=== PATIENT | female | born 1990 | race American Indian/Alaskan Native ===

== ENCOUNTER 2021-10-14 16:42 | Emergency (ER) | payer OTHER ==
--- NOTE | 2021-10-14 16:56 | Emergency Department Report ---
ED ENT HPI - General Chief complaint: Dental/Oral Stated complaint: TOOTHACHE Time Seen by Provider: 10/14/21 16:52 Source: patient Mode of arrival: Ambulatory Limitations: No Limitations - History of Present Illness Initial comments: Patient is a 30-year-old female that comes to the emergency room today with dental pain. She has impacted wisdom teeth and needs oral surgery but she has not been able to get it because she cannot afford it. She also has a caries of one of her lower wisdom teeth. She has no abscess. No Ludewig's. No trismus vital signs are stable ABCs intact and she is controlling secretions. -: Gradual, month(s) Severity: moderate Quality: aching Consistency: constant Improves with: none Worsens with: none Context- Dental: history of dental caries Associated Symptoms: toothache. denies: fever, cough, gum swelling, pain with swallowing, sore throat, tinnitus, hearing loss, discharge from ear, rhinorrhea - Related Data Previous Rx's Medication Instructions Recorded Last Taken Type Amoxicillin [Trimox CAP] 500 mg PO BID #20 capsule 10/14/21 Unknown Rx Ibuprofen [Motrin] 800 mg PO Q8HR PRN #30 tablet 10/14/21 Unknown Rx Allergies Allergy/AdvReac Type Severity Reaction Status Date / Time No Known Allergies Allergy Verified 10/14/21 16:47 ED Dental HPI - General Chief complaint: Dental/Oral Stated complaint: TOOTHACHE Time Seen by Provider: 10/14/21 16:52 Source: patient Mode of arrival: Ambulatory Limitations: No Limitations - Related Data Previous Rx's Medication Instructions Recorded Last Taken Type Amoxicillin [Trimox CAP] 500 mg PO BID #20 capsule 10/14/21 Unknown Rx Ibuprofen [Motrin] 800 mg PO Q8HR PRN #30 tablet 10/14/21 Unknown Rx Allergies Allergy/AdvReac Type Severity Reaction Status Date / Time No Known Allergies Allergy Verified 10/14/21 16:47 ED Review of Systems ROS: Stated complaint: TOOTHACHE Other details as noted in HPI Comment: All other systems reviewed and negative ED Past Medical Hx - Past Medical History Previous Medical History?: No - Surgical History Past Surgical History?: No - Family History Family history: no significant - Social History Smoking Status: Never Smoker Substance Use Type: None - Medications Home Medications: Home Medications Medication Instructions Recorded Confirmed Last Taken Type Amoxicillin [Trimox CAP] 500 mg PO BID #20 capsule 10/14/21 Unknown Rx Ibuprofen [Motrin] 800 mg PO Q8HR PRN #30 tablet 10/14/21 Unknown Rx ED Physical Exam - General Limitations: No Limitations General appearance: alert, in no apparent distress - Head Head exam: Present: atraumatic, normocephalic - Eye Eye exam: Present: normal appearance - ENT ENT exam: Present: mucous membranes moist - Expanded ENT Exam Expanded Mouth exam: Present: normal external inspection. Absent: drooling, trismus, muffled voice, tongue normal, tongue elevation, laceration Teeth exam: Present: dental caries, other 1 - Other (caries) - Neck Neck exam: Present: normal inspection - Respiratory Respiratory exam: Present: normal lung sounds bilaterally. Absent: respiratory distress - Cardiovascular Cardiovascular Exam: Present: regular rate, normal rhythm. Absent: systolic murmur, diastolic murmur, rubs, gallop - GI/Abdominal GI/Abdominal exam: Present: soft, normal bowel sounds - Extremities Exam Extremities exam: Present: normal inspection - Back Exam Back exam: Present: normal inspection - Neurological Exam Neurological exam: Present: alert, oriented X3 - Psychiatric Psychiatric exam: Present: normal affect, normal mood - Skin Skin exam: Present: warm, dry, intact, normal color. Absent: rash ED Course Vital Signs 10/14/21 16:47 Temperature 98.6 F Pulse Rate 89 Respiratory 16 Rate Blood Pressure 127/89 [Left] O2 Sat by Pulse 99 Oximetry ED Medical Decision Making - Medical Decision Making Vital Signs 10/14/21 16:47 Temperature 98.6 F Pulse Rate 89 Respiratory 16 Rate Blood Pressure 127/89 [Left] O2 Sat by Pulse 99 Oximetry I have educated patient regarding her dental caries and wisdom teeth. I told her the overdoing today will temporarily relieve the pain from the cavity but she ultimately needs to see the dentist for definitive care. She verbalizes understanding. Patient discharged home with discharge plan of care including di et, medications and activity and follow-up. She verbalizes understanding. - Differential Diagnosis Dental pain Critical care attestation.: If time is entered above; I have spent that time in minutes in the direct care of this critically ill patient, excluding procedure time. ED Disposition Clinical Impression: Caries Disposition: 01 HOME / SELF CARE / HOMELESS Is pt being admited?: No Does the pt Need Aspirin: No Condition: Stable Instructions: Preventive Dental Care, Adult Additional Instructions: Medication as ordered today. Follow-up with dentist referrals below. Tylenol can be used in addition to what have given you today for pain Stay well-hydrated with water Take antibiotic until completely gone Prescriptions: Ibuprofen [Motrin] 800 mg PO Q8HR PRN #30 tablet PRN Reason: Pain, Moderate (4-6) Amoxicillin [Trimox CAP] 500 mg PO BID #20 capsule [facility]5 [facility] [Outside] - 3-5 Days Forms: Work/School Release Form(ED) Time of Disposition: 16:54
[2021-10-14 17:27] VITALS: BP 154/79
== END 2021-10-14 17:15 | disposition home or self-care (01) ==
LOC: ED 16:42
DX: K02.9 Dental caries, unspecified (principal); Z79.899 Other long term (current) drug therapy
CPT/HCPCS: 99282

== ENCOUNTER 2022-01-19 17:47 | Emergency (ER) | payer OTHER ==
[2022-01-19 19:51] VITALS: BP 131/96
[2022-01-19] MEDS ORDERED: ACETAMINOPHEN 500 MG TAB PO ONE (19:54)
--- NOTE | 2022-01-19 19:54 | Emergency Department Report ---
Chief Complaint: Fever Stated Complaint: FEVER,CHILLS,AB PAIN,WEAKNESS Time Seen by Provider: 01/19/22 19:51 - HPI History of Present Illness: States that she was treated for urinary tract infection with Bactrim 3 days ago, has been taking antibiotics as prescribed, but developed fever yesterday that has been persistent since then. T-max equals 102. She states that she also has some vaginal discharge now. - ROS Review of Systems: Patient complains of abdominal pain, dysuria, fever, and vaginal discharge. She denies chest pain or shortness of breath. - Exam Vital Signs: Vital Signs 01/19/22 19:45 Temperature 101.1 F H Pulse Rate 122 H Respiratory 18 Rate Blood Pressure 131/96 [Right] O2 Sat by Pulse 98 Oximetry Physical Exam: General: Nontoxic appearing no acute distress Cardiac: Regular rate, normal heart sounds Respiratory: Normal lung sounds bilaterally no use of peripheral vascular tech muscles GI/-normal sounds, tenderness to suprapubic area, no guarding Musculoskeletal-normal inspection full range of motion Neuro-alert oriented x4. Speech is clear MSE screening note: Focused history and physical exam performed. Due to findings the following was ordered: CBC, CMP, lipase, UA, urine . In the setting of a significantly high volume and record number of patients presenting to the emergency department and the fact that we have a limited space to see patients we have implemented the provider in triage protocol this allows an expedited initial exam of patients that might otherwise have left without being seen or who would wait longer than usual to be seen by provider. I interviewed the patient and performed a limited physical exam. The ultimate final evaluation and disposition may be performed by another provider depending on room and provider availability ED Disposition for MSE Condition: Stable
[2022-01-19 20:20] LABS: Mucus,Urine FEW /HPF
[2022-01-19 20:30] LABS: Bilirubin,Urine Negative (Negative); Blood,Urine 2+ (Negative); Color,Urine Yellow (Yellow)
[2022-01-19 20:31] LABS: Urobilinogen,Urine < 2.0 mg/dL (<2.0)
[2022-01-19 21:42] LABS: Hematocrit 38.2 % (30.3-42.9); Hemoglobin 12.6 gm/dl (10.1-14.3); Mean Corpuscular HGB Conc 33 % (30-34); Mean Corpuscular Volume 94 fl (79-97); Platelet Count 280 K/mm3 (140-440); Red Blood Count 4.07 M/mm3 (3.65-5.03); Red Cell Distribution Width 13.1 % (13.2-15.2)
[2022-01-19 22:06] LABS: Alanine Aminotransferase 8 units/L (7-56); Albumin 4.4 g/dL (3.9-5); BUN/Creatinine Ratio 11; Blood Urea Nitrogen 11 mg/dL (7-17); Calcium 9.2 mg/dL (8.4-10.2); Hemolysis Index 3
== END 2022-01-20 00:10 | disposition left against medical advice (07) ==
LOC: ED 17:47
DX: R50.9 Fever, unspecified (principal); R10.9 Unspecified abdominal pain; N89.8 Other specified noninflammatory disorders of vagina
CPT/HCPCS: 36415; 80053; 81001; 83690; 84703; 85027; 87086; 99283